=== PATIENT | female | born 1950 | race Caucasian/White ===

== ENCOUNTER 2017-08-22 16:21 | Emergency (ER) | payer OTHER ==
[2017-08-22 16:34] VITALS: BP 133/88; PULSE 89; TEMP 97.6; BMI 24.7
--- NOTE | 2017-08-22 18:10 | PDOC ---
History of Present Illness <Pete Frederick - Last Filed: 08/22/17 18:56> - History of Present Illness Initial Comments: 08/22/17 18:03 "The patient is a 67 year old female, with no significant past medical history, who presents to the emergency department with, right knee pain s/p fall this morning. The patient states she slipped in the snow this morning and her right leg slid outwards from under her. The patient denies head strike/injury or loss of consciousness. The patient denies any preceeding chest pain, palpitations, shortness of breath, blurred vision or nausea prior to falling. The patient states she was able to get up on her own after the fall and bear weight on her R leg without any pain. However, after a few hours, she began to notice pain in her R knee, especially with ambulation. The patient reports the right knee pain is alleviated at rest when sitting down and made worse with movement/ bearing weight. The patient states she has not taken any pain medication for the right knee pain. Allergies: NKA " <Rafael Pinon - Last Filed: 08/25/17 09:21> - General Chief Complaint: Injury Stated Complaint: RIGTH FOOT AN DKNEE PAIN S/P FELL IN THE ICE TODAY Time Seen by Provider: 08/22/17 16:31 Past History <Pete Frederick - Last Filed: 08/22/17 18:56> - Past Medical History COPD: No Psychiatric Problems: Yes (depression) - Immunization History Immunization Up to Date: Yes - Suicide/Smoking/Psychosocial Hx Smoking History: Never smoked Hx Alcohol Use: No Drug/Substance Use Hx: No Substance Use Type: None <Rafael Pinon - Last Filed: 08/25/17 09:21> - Past Medical History Allergies/Adverse Reactions: Allergies Allergy/AdvReac Type Severity Reaction Status Date / Time No Known Allergies Allergy Verified 08/22/17 16:27 Home Medications: Ambulatory Orders Nortriptyline HCl [Pamelor] 75 mg PO HS 08/22/17 Review of Systems - Review of Systems Comments:: 08/22/17 18:04 " GENERAL/CONSTITUTIONAL: No fever or chills. No weakness. HEAD, EYES, EARS, NOSE AND THROAT: No change in vision. No ear pain or discharge. No sore throat. CARDIOVASCULAR: No chest pain or shortness of breath. RESPIRATORY: No cough, wheezing, or hemoptysis. GASTROINTESTINAL: No nausea, vomiting, diarrhea or constipation. GENITOURINARY: No dysuria, frequency, or change in urination. MUSCULOSKELETAL: +Right knee pain. No neck or back pain. SKIN: No rash NEUROLOGIC: No headache, vertigo, loss of consciousness, or change in strength/ sensation. ENDOCRINE: No increased thirst. No abnormal weight change. HEMATOLOGIC/LYMPHATIC: No anemia, easy bleeding, or history of blood clots. ALLERGIC/IMMUNOLOGIC: No hives or skin allergy. " <KathrinRafael - Last Filed: 08/25/17 09:21> *Physical Exam - Vital Signs Last Vital Signs Temp Pulse Resp BP Pulse Ox 97.6 F 89 16 133/88 100 08/22/17 16:22 08/22/17 16:22 08/22/17 16:22 08/22/17 16:22 08/22/17 16:22 <Pete Frederick - Last Filed: 08/22/17 18:56> - Vital Signs Last Vital Signs Temp Pulse Resp BP Pulse Ox 97.6 F 89 16 133/88 100 08/22/17 16:22 08/22/17 16:22 08/22/17 16:22 08/22/17 16:22 08/22/17 16:22 - Physical Exam Comments: 08/22/17 18:04 "GENERAL: Awake, alert, and fully oriented, in no acute distress HEAD: No signs of trauma EYES: PERRLA, EOMI, sclera anicteric, conjunctiva clear ENT: Auricles normal inspection, hearing grossly normal, nares patent, oropharynx clear without exudates. Moist mucosa NECK: Nontender, no stepoffs, Normal ROM, supple, no lymphadenopathy, JVD, or masses LUNGS: Breath sounds equal, clear to auscultation bilaterally. No wheezes, and no crackles HEART: Regular rate and rhythm, normal S1 and S2, no murmurs, rubs or gallops ABDOMEN: Soft, nontender, normoactive bowel sounds. No guarding, no rebound. No masses PELVIS: stable EXTREMITIES: R knee with full active ROM, mild TTP at medial joint line, + pain with valgus stress, no effusion. No clubbing or cyanosis. No cords, erythema, or tenderness, R ankle with no bony tenderness or deformity, pulses intact distally, sensation intact to light touch NEUROLOGICAL: Cranial nerves II through XII intact. 5/5 strength and sensation in all extremities, Normal speech, normal gait, normal cerebellar function SKIN: Warm, Dry, normal turgor, no rashes or lesions noted. <Rafael Pinon - Last Filed: 08/25/17 09:21> ED Treatment Course - RADIOLOGY Radiograph Interpretation: 08/22/17 18:56 EXAM#: TYPE/EXAM: RESULT: [id number] RAD/ANKLE-RIGHT RAD/KNEE 3 POS-RIGHT INDICATION: Status post fall. TECHNIQUE: 1. AP, lateral and sunrise views of the right knee. 2. AP, lateral and oblique views of the right ankle. COMPARISON: None available. FINDINGS: Right knee - No evidence of acute fracture or dislocation. Alignment is anatomic. The joint spaces are maintained with no significant arthritic changes. There is a small to moderate size suprapatellar effusion. There is enthesopathy at the insertion of the quadriceps tendon. There is osseous demineralization. Right ankle - Status post ORIF of the medial and lateral malleolus. Hardware is intact. There is no definite acute fracture in the right ankle. Alignment is anatomic. The talar dome is grossly intact. There is punctate calcification along the distal Achilles tendon. There is osseous demineralization. IMPRESSION: 1. Right knee - No evidence of acute fracture or dislocation. Small to moderate -sized suprapatellar joint effusion is nonspecific. 2. Right ankle - Status post ORIF of the medial and lateral malleolus. No evidence of acute fracture or dislocation. Reported By: Gemini Hale DO <Pete Frederick - Last Filed: 08/22/17 18:56> - RADIOLOGY Radiology Studies Ordered: Category Date Time Status ANKLE-RIGHT [RAD] Stat Radiology 08/22/17 17:16 Taken KNEE 3 POS-RIGHT [RAD] Stat Radiology 08/22/17 17:16 Taken <Rafael Pinon - Last Filed: 08/25/17 09:21> Medical Decision Making - Medical Decision Making 08/22/17 18:12 67 F with R knee pain s/p fall today. Pt ambulatory with minimal pain. Exam notable for medial jointline tenderness + pain with valgus stress. Possible MCL injury. Pt with no signs of acute fx. No signs of head trauma, no c-spine or back tenderness, no hip or pelvis pain. Pt has had prior surgery on R ankle. No pain in her ankle but will obtain XR given presence of hardware. - XR R knee, R ankle 08/22/17 19:06 XR negative for acute fx. Pt placed in knee immobilizer. Will f/u with ortho for further evaluation of pain, possible MRI to r/o ligamentous injury. Pt is well appearing, with normal vitals. Clinically stable for DC at this time. I discussed the physical exam findings, ancillary test results and final diagnoses with the patient. I answered all of the patient's questions. The patient was satisfied with the care received and felt comfortable with the discharge plan and treatment plan. The patient agrees to follow up with the primary care physician within 24-72 hours. <Rafael Pinon - Last Filed: 08/25/17 09:21> *DC/Admit/Observation/Transfer - Attestations Scribe Attestion: 08/22/17 18:22 Documentation prepared by Pete Frederick, acting as medical apparatus model maker for Rafael Pinon MD. <Pete Frederick - Last Filed: 08/22/17 18:56> - Attestations Physician Attestion: 08/22/17 18:18 I, Dr. Rafael Pinon MD, attest that this document has been prepared under my direction and personally reviewed by me in its entirety. I further attest, that it accurately reflects all work, treatment, procedures and medical decision -making performed by me. <Rafael Pinon - Last Filed: 08/25/17 09:21> Diagnosis at time of Disposition: Knee pain - Discharge Dispostion Disposition: HOME Condition at time of disposition: Stable - Referrals Referrals: Rafeal Bradford MD [Staff Physician] - - Patient Instructions Printed Discharge Instructions: DI for Knee Pain Additional Instructions: Keep your knee in the knee immobilizer until you are able to see an orthopedic surgeon. You may have a torn ligament. You will likely need a MRI to fully evaluate this. If you experience worsening pain, swelling, or any other concerning symptoms, return to the ER immediately.
== END 2017-08-22 19:20 | disposition home or self-care (01) ==
LOC: FER 16:21
PROC: 2W3QX1Z Immobilization of Right Lower Leg using Splint (ICD-10-PCS; principal; 2017-08-22)
DX: M25.561 Pain in right knee (principal); W00.0XXA Fall on same level due to ice and snow, initial encounter; Y93.89 Activity, other specified; Y92.9 Unspecified place or not applicable; F32.9 Major depressive disorder, single episode, unspecified
CPT/HCPCS: 73562-TC-RT-FY; 73610-TC-RT-FY; 99282-25

== ENCOUNTER 2018-07-21 19:13 | Emergency (ER) | payer OTHER ==
--- NOTE | 2018-07-21 19:28 | PDOC ---
History of Present Illness - General History Source: Patient Exam Limitations: No Limitations - History of Present Illness Initial Comments: 07/21/18 19:53 The patient is a 68-year-old female with no reported past medical history presents to the emergency department with cold symptoms. The patient reports she returned from a trip to [facility] on July 18, where the symptoms began. The patient states she was visiting [facility] near [facility], where it was cold. The patient states she packed summer clothes and wasnt prepared for the cold. The patient reports the symptoms present as heaviness with a lack of energy, headache, and a cough. Denies taking any abx or OTC medication. The patient indicates the symptoms slightly improved a little before worsening. The patient reports since returning, shes been having symptoms of weakness, lack of appetite and cough. Denies rashes or diarrhea. Allergies: NKDA <Ema Kohler - Last Filed: 07/21/18 20:01> <Leonardo Kirk - Last Filed: 07/22/18 05:37> - General Chief Complaint: Respiratory Stated Complaint: URI Time Seen by Provider: 07/21/18 19:17 Past History <Ema Kohler - Last Filed: 07/21/18 20:01> - Past Medical History COPD: No Psychiatric Problems: Yes (depression) - Immunization History Immunization Up to Date: Yes - Suicide/Smoking/Psychosocial Hx Smoking History: Never smoked Hx Alcohol Use: No Drug/Substance Use Hx: No Substance Use Type: None <Leonardo Kirk - Last Filed: 07/22/18 05:37> - Past Medical History Allergies/Adverse Reactions: Allergies Allergy/AdvReac Type Severity Reaction Status Date / Time No Known Allergies Allergy Verified 08/22/17 16:27 Home Medications: Ambulatory Orders Doxycycline Hyclate [Vibratab -] 100 mg PO BID #20 tablet 07/21/18 Review of Systems - Review of Systems Able to Perform ROS?: Yes Comments:: 07/21/18 19:53 GENERAL/CONSTITUTIONAL: +mild fever and weakness. No chills. HEAD, EYES, EARS, NOSE AND THROAT: +rhinorrhea. No change in vision. No ear pain or discharge. No sore throat. CARDIOVASCULAR: No chest pain or shortness of breath. RESPIRATORY: +cough. No wheezing, or hemoptysis. GASTROINTESTINAL: No nausea, vomiting, diarrhea or constipation. GENITOURINARY: No dysuria, frequency, or change in urination. MUSCULOSKELETAL: No joint or muscle swelling or pain. No neck or back pain. SKIN: No rash NEUROLOGIC: +headache. No vertigo, loss of consciousness, or change in strength/ sensation. ENDOCRINE: No increased thirst. No abnormal weight change. HEMATOLOGIC/LYMPHATIC: No anemia, easy bleeding, or history of blood clots. ALLERGIC/IMMUNOLOGIC: No hives or skin allergy. <Ema Kohler - Last Filed: 07/21/18 20:01> *Physical Exam - Vital Signs Last Vital Signs Temp Pulse Resp BP Pulse Ox 98.7 F 103 H 16 140/89 92 L 07/21/18 19:26 07/21/18 19:26 07/21/18 19:26 07/21/18 19:26 07/21/18 19:26 - Physical Exam Comments: 07/21/18 19:53 GENERAL: Awake, alert, and fully oriented, in no acute distress HEAD: No signs of trauma EYES: PERRLA, EOMI, sclera anicteric, conjunctiva clear ENT: Auricles normal inspection, hearing grossly normal, nares patent, oropharynx clear without exudates. Moist mucosa NECK: Normal ROM, supple, no lymphadenopathy, JVD, or masses LUNGS: Breath sounds equal, clear to auscultation bilaterally. No wheezes, and no crackles HEART: Regular rate and rhythm, normal S1 and S2, no murmurs, rubs or gallops ABDOMEN: Soft, nontender. No guarding, no rebound. No masses EXTREMITIES: Normal range of motion, no edema. No clubbing or cyanosis. No cords, erythema, or tenderness NEUROLOGICAL: Cranial nerves II through XII grossly intact. Normal speech, normal gait SKIN: Warm, Dry, normal turgor, no rashes or lesions noted. <Ema Kohler - Last Filed: 07/21/18 20:01> Moderate Sedation - Procedure Monitoring Vital Signs: Procedure Monitoring Vital Signs Temperature 98.7 F 07/21/18 19:26 Pulse Rate 103 H 07/21/18 19:26 Respiratory Rate 16 07/21/18 19:26 Blood Pressure 140/89 07/21/18 19:26 O2 Sat by Pulse Oximetry (%) 92 L 07/21/18 19:26 <Ema Kohler - Last Filed: 07/21/18 20:01> Heart Score/ECG Review - ECG Impressions Comment:: 07/21/18 20:01 EKG demonstrates Sinus rhythm of 93, Normal axis, normal interval, no ischemic findings. <Ema Kohler - Last Filed: 07/21/18 20:01> ED Treatment Course - LABORATORY CBC & Chemistry Diagram: 07/21/18 19:55 07/21/18 19:55 <Ema Kohler - Last Filed: 07/21/18 20:01> - LABORATORY CBC & Chemistry Diagram: 07/21/18 19:55 07/21/18 19:55 <Leonardo Kirk - Last Filed: 07/22/18 05:37> Medical Decision Making - Medical Decision Making 07/22/18 05:36 pneumonia/ pneumonitis abx symptomatic treatment <Leonardo Kirk - Last Filed: 07/22/18 05:37> *DC/Admit/Observation/Transfer - Attestations Scribe Attestion: 07/21/18 19:54 Documentation prepared by Ema Kohler, acting as medical logistics specialist for Leonardo Kirk MD. <Ema Kohler - Last Filed: 07/21/18 20:01> <Leonardo Kirk - Last Filed: 07/22/18 05:37> Diagnosis at time of Disposition: Pneumonia Qualifiers: Pneumonia type: due to unspecified organism Laterality: unspecified laterality Lung location: unspecified part of lung Qualified Code(s): J18.9 - Pneumonia, unspecified organism - Discharge Dispostion Disposition: HOME Condition at time of disposition: Stable - Prescriptions Prescriptions: Doxycycline Hyclate [Vibratab -] 100 mg PO BID #20 tablet - Patient Instructions Printed Discharge Instructions: DI for Pneumonia -- Adult
[2018-07-21 19:32] VITALS: BP 140/89; TEMP 98.7; BMI 22.1
[2018-07-21 20:10] LABS: BASO % 1.1 % (0-2.0); EOS % 0.1 % (0-4.5); HEMATOCRIT 35.8 % (32.4-45.2); HEMOGLOBIN 11.7 GM/dl (10.7-15.3); LYMPH % 9.4 % (8-40); MCH 25.2 pg (25.7-33.7); MCHC 32.7 g/dl (32.0-36.0); MEAN CELL VOLUME 77.2 fl (80-96); MEAN PLT VOLUME 8.8 fl (7.5-11.1); MONO % 8.6 % (3.8-10.2); NEUT % 80.8 % (42.8-82.8); PLATELET COUNT 244 K/MM3 (134-434); RBC 4.64 M/mm3 (3.60-5.2); RDW 12.1 % (11.6-15.6); WHITE BLOOD COUNT 9.8 K/mm3 (4.0-10.8)
[2018-07-21 20:24] LABS: ALBUMIN 2.8 g/dl (3.4-5.0); ALK PHOS 75 U/L (45-117); ANION GAP 7 MMOL/L (8-16); BILIRUBIN,TOTAL 0.8 mg/dl (0.2-1); BLOOD UREA NITROGEN 8 mg/dl (7-18); CALCIUM 7.9 mg/dl (8.5-10); CHLORIDE 99 mmol/L (98-107); CO2 26 mmol/L (21-32); CREATININE 0.6 mg/dl (0.55-1.3); GLUCOSE,RANDOM 114 mg/dl (74-106); SGOT/AST 16 U/L (15-37); SGPT/ALT 14 U/L (13-61); SODIUM 132 mmol/L (136-145); TOT PROT 6.2 g/dl (6.4-8.2)
[2018-07-21 20:59] LABS: VENOUS PC02 43.3 mmHg (38-52); VENOUS PH 7.42 (7.32-7.42); VENOUS PO2 31.6 mmHg (28-48)
[2018-07-21 21:17] LABS: N-TERMINAL BNP 172.4 pg/ml (5-125)
[2018-07-21 21:40] VITALS: PULSE 102
[2018-07-21] MEDS ORDERED: DOXYCYCLINE HYCLATE 100 MG CAPSULE PO ONE ×2 (22:51→22:53)
--- NOTE | 2018-07-24 11:07 | EKG ---
Test Reason : Blood Pressure : / mmHG Vent. Rate : 093 BPM Atrial Rate : 093 BPM P-R Int : 128 ms QRS Dur : 070 ms QT Int : 340 ms P-R-T Axes : 076 052 062 degrees QTc Int : 422 ms NORMAL SINUS RHYTHM POSSIBLE LEFT ATRIAL ENLARGEMENT BORDERLINE ECG NO PREVIOUS ECGS AVAILABLE Confirmed by ZOIE PABON, RACIEL ([id number]) on 07/24/2018 11:07:13 AM Referred By: DR OSUNA Confirmed By:RACIEL LINO MD
== END 2018-07-21 23:04 | disposition home or self-care (01) ==
LOC: FER 19:13
DX: J18.9 Pneumonia, unspecified organism (principal); F32.9 Major depressive disorder, single episode, unspecified
CPT/HCPCS: 36415; 71046-TC-FY; 71260-TC; 80053; 82803; 83605; 83880; 84484; 85025; 85379; 87040; 93005; 99283-25

== ENCOUNTER 2019-12-26 22:06 | Emergency (ER) | payer OTHER ==
--- NOTE | 2019-12-26 22:09 | PDOC ---
History of Present Illness - General Chief Complaint: Constipation Stated Complaint: "I am constipated" Time Seen by Provider: 12/26/19 22:08 - History of Present Illness Initial Comments: 12/26/19 22:40 This 69-year-old woman with a history of depression but no other medical problems presents with 2-day history of constipation and several hour history of abdominal distention/discomfort/ mild nausea but no bowel movement after taking laxatives. Patient states that she has only one previous history of constipation last year that resolved over a few days. Otherwise, she usually has 2-3 bowel movements each day. She last remembers having 1 normal bowel movement 2 days ago and none since then. Today, she bought [id number] colonoscopy prep kit that contained dulcolax tabs(which she took at about noon) and citrate of magnesia. After she drank the bottle of citrate of magnesium at 7PM, she began to have cramping abdominal pain and mild nausea. She has not vomited. No chest pain, shortness of breath, cough No new medications (nortriptyline was started a few months ago); no dietary changes. No recent fever/chills. No history of small bowel obstruction; no history of abdominal surgery. Last colonoscopy was last year (reportedly normal) Medication: Nortriptyline No known allergies Non-smoker; no daily alcohol or other recreational drug use Past History - Medical History Allergies/Adverse Reactions: Allergies Allergy/AdvReac Type Severity Reaction Status Date / Time No Known Allergies Allergy Verified 08/22/17 16:27 Home Medications: Ambulatory Orders Nortriptyline HCl [Pamelor -] 75 mg PO DAILY 12/26/19 COPD: No Psychiatric Problems: Yes (depression) - Immunization History Immunization Up to Date: Yes - Psycho-Social/Smoking History Smoking History: Never smoked Review of Systems - Review of Systems Able to Perform ROS?: Yes Comments:: 12 point review of systems is negative except for what is noted in the history of present illness *Physical Exam - Physical Exam GENERAL: Adult female, alert and oriented x3, in mild distress secondary to abdominal discomfort HEAD: Normal with no signs of trauma. EYES: PERRLA, EOMI, sclera anicteric, conjunctiva clear. ENT: Ears normal, nares patent, oropharynx clear without exudates. Dry mucous membranes. NECK: Normal range of motion, supple without lymphadenopathy, JVD, or masses. LUNGS: Breath sounds equal, clear to auscultation bilaterally. No wheezes, and no crackles. HEART:Regular rate and rhythm, normal S1 and S2 without murmur, rub or gallop. ABDOMEN:.normal bowel sounds: firm, moderately distended, mild generalized tenderness without guarding or rebound; no masses or organomegaly RECTAL: Normal anal tone, empty ampulla without stool or palpable masses EXTREMITIES: Normal range of motion, no edema. No clubbing or cyanosis. No e rythema, or tenderness. NEUROLOGICAL: Cranial nerves II through XII grossly intact. Normal speech. Normal gait no focal neurological deficits. ED Treatment Course - LABORATORY CBC & Chemistry Diagram: 12/26/19 22:41 12/26/19 22:41 ED Progress Note - Progress Note Progress Note: This 69-year-old woman with a history of depression but no significant other past medical history presents with a 2-day history of constipation. Patient states that she rarely becomes constipated (had an episode last year) but has been treated with nortriptyline for a few months which is known to cause constipation. She purchased an [id number] colonoscopy prep kit containing Dulcolax and citrate of magnesia which she consumed today: She noted abdominal distention and discomfort after drinking the magnesium citrate without having a bowel movement. She also developed mild nausea without vomiting. Exam as noted above with no stool noted in the distal rectum on rectal exam. CBC/chemistry profile obtained flat and upright x-ray image of the abdomen was obtained (limited views through portable technique because of limitations in the radiology department at this time). Preliminary reading by me: Stool seen in the distal colon. Some gas- filled loops of small bowel seen without significant dilatation or air-fluid levels Laboratory evaluation notable for mild increase in white blood cell count (12,900); there is also mild hyponatremia(132). AST was also minimally elevated at 70 with normal ALT. No other significant abnormality seen in the lab work. Patient had spontaneous evacuation of her bowels (loose brown stool according to the patient) with relief in her abdominal discomfort. Reexamination showed no tenderness and significant decrease in abdominal distention. The patient expressed overwhelming desire to be discharged. 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 She should return to the emergency room immediately if she has any recurrence of her pain, abdominal distention or develops nausea/vomiting/fever Discharge - Discharge Information Problems reviewed: Yes Clinical Impression/Diagnosis: History of constipation Condition: Stable Disposition: HOME - Follow up/Referral - Patient Discharge Instructions Patient Printed Discharge Instructions: Constipation Additional Instructions: continue to drink plenty of water return to ER if you develop persistent abdominal pain, vomiting or fever followup with your doctor within the next 5 days - Post Discharge Activity
[2019-12-26 22:17] VITALS: BP 139/84; PULSE 100; TEMP 97.9; BMI 22.1
[2019-12-26] MEDS ORDERED: SODIUM CHLORIDE 500 ML IV STA (22:39)
[2019-12-27 00:21] LABS: BASO % 0.2 % (0-2.0); EOS % 0.2 % (0-4.5); HEMATOCRIT 38.8 % (32.4-45.2); HEMOGLOBIN 12.7 GM/dL (10.7-15.3); LYMPH % 9.4 % (8-40); MCH 25.5 pg (25.7-33.7); MCHC 32.6 g/dl (32.0-36.0); MEAN CELL VOLUME 78.2 fl (80-96); MEAN PLT VOLUME 9.9 fl (7.5-11.1); MONO % 7.2 % (3.8-10.2); PLATELET COUNT 154 K/MM3 (134-434); RBC 4.95 M/mm3 (3.60-5.2); RDW 13.5 % (11.6-15.6); WHITE BLOOD COUNT 12.9 K/mm3 (4.0-10.0)
[2019-12-27 00:26] LABS: ALBUMIN 3.5 g/dl (3.4-5.0); BILIRUBIN,TOTAL 0.6 mg/dL (0.2-1); BLOOD UREA NITROGEN 10.2 mg/dL (7-18); CALCIUM 8.8 mg/dL (8.5-10.1); CREATININE 0.8 mg/dL (0.55-1.3); POTASSIUM 3.9 mmol/L (3.5-5.1); TOT PROT 6.8 g/dl (6.4-8.2)
== END 2019-12-27 00:35 | disposition home or self-care (01) ==
LOC: FER 22:06
PROC: 3E0337Z Introduction of Electrolytic and Water Balance Substance into Peripheral Vein, Percutaneous Approach (ICD-10-PCS; principal; 2019-12-26)
DX: K59.00 Constipation, unspecified (principal)
CPT/HCPCS: 36415; 74019-TC-FY; 80053; 85025; 99284-25

== ENCOUNTER 2023-11-29 10:05 | Emergency (ER) | payer OTHER, MEDICARE ==
[2023-11-29 10:29] VITALS: BP 149/80; PULSE 74; RESP 20; TEMP 98.3; BMI 24.3
[2023-11-29] MEDS ORDERED: ALBUTEROL SO4 2.5/IPRATROPIUM 0.5 INH SOL 3 ML VIAL.NEB. NEB ONE (11:04)
[2023-11-29] MEDS: ALBUTEROL SO4 2.5/IPRATROPIUM 0.5 INH SOL 3 ML VIAL.NEB. NEB ONE ×2 (11:20→11:28)
[2023-11-29] MEDS: predniSONE 20 MG TABLET (UD) PO ONE (11:20)
[2023-11-29] MEDS ORDERED: predniSONE 20 MG TABLET (UD) ONE (11:21)
== END 2023-11-29 12:11 | disposition home or self-care (01) ==
LOC: FER 10:05
PROC: 3E0F7GC Introduction of Other Therapeutic Substance into Respiratory Tract, Via Natural or Artificial Opening (ICD-10-PCS; principal; 2023-11-29)
PROC: 3E0F7GC Introduction of Other Therapeutic Substance into Respiratory Tract, Via Natural or Artificial Opening (ICD-10-PCS; 2023-11-29)
DX: J18.9 Pneumonia, unspecified organism (principal); R05.9 Cough, unspecified; R07.89 Other chest pain; R68.83 Chills (without fever); Z20.822 Contact with and (suspected) exposure to COVID-19
CPT/HCPCS: 0241U-QW; 71046-TC-FY; 99284-25

== ENCOUNTER 2024-10-26 09:21 | Emergency (ER) | payer OTHER, MEDICARE ==
[2024-10-26 09:32] VITALS: BP 120/78; BMI 23.9
[2024-10-26] MEDS ORDERED: ACETAMINOPHEN INJECTION 100 ML ONE (10:09)
[2024-10-26] MEDS: SODIUM CHLORIDE 0.9% 500 ML INFUS.BAG IV ONE (10:20)
[2024-10-26] MEDS: ACETAMINOPHEN 1000 MG/100 ML BAG IVPB ONE (10:25)
[2024-10-26 11:00] LABS: ABSOLUTE IMMATURE GRANULOCYTES 0.02 x10^3/uL (0.0-0.031); BASOPHILS # 0.03 x10^3/uL (0.01-0.08); EOSINOPHIL % 0.1 % (0.7-5.8); EOSINOPHILS # 0.01 x10^3/uL (0.04-0.36); HEMATOCRIT 29.2 % (34.1-44.9); HEMOGLOBIN 9.4 g/dL (11.2-15.7); MCHC 32.2 g/dl (32.2-35.5); MEAN CELL VOLUME 77.5 fl (79.4-94.8); MEAN PLT VOLUME 11.6 fl (9.4-12.3); MONOCYTE # 0.44 x10^3/uL (0.24-0.86); MONOCYTE % 6.1 % (4.7-12.5); PLATELET COUNT 99 x10^3/uL (182-369); RDW 13.2 % (12.4-16.6)
[2024-10-26 11:22] LABS: ALBUMIN 3.4 g/dl (3.4-5.0); BILIRUBIN,TOTAL 0.3 mg/dl (0.2-1); CALCIUM 8.2 mg/dl (8.5-10.1); CREATININE 0.7 mg/dl (0.6-1.3); MAGNESIUM 1.8 mg/dL (1.8-2.4); POTASSIUM 4.4 mmol/L (3.5-5.1)
[2024-10-26 12:44] LABS: EPITHELIAL CELLS 0-5 /hpf
[2024-10-26] MEDS ORDERED: AZITHROMYCIN 500 MG TABLET ONE (13:06)
[2024-10-26] MEDS: AZITHROMYCIN 250 MG TABLET PO ONE (13:09)
[2024-10-26 13:12] VITALS: PULSE 85; RESP 18; TEMP 98.1
[2024-10-26 17:07] LABS: HCV DIAGNOSTIC IN-HOUSE W/RFLX NON-REACTIVE (NONREACTIVE)
[2024-10-26 17:09] LABS: HIV INTERPRETATION NEGATIVE (NEGATIVE)
== END 2024-10-26 13:19 | disposition home or self-care (01) ==
LOC: FER 09:21
PROC: 3E033NZ Introduction of Analgesics, Hypnotics, Sedatives into Peripheral Vein, Percutaneous Approach (ICD-10-PCS; principal; 2024-10-26)
DX: J18.9 Pneumonia, unspecified organism (principal); R06.02 Shortness of breath; R00.0 Tachycardia, unspecified; M54.50 Low back pain, unspecified; R53.81 Other malaise; M79.10 Myalgia, unspecified site; R05.9 Cough, unspecified; R07.2 Precordial pain; R50.9 Fever, unspecified
CPT/HCPCS: 0241U-QW; 36415; 71046-TC-FY; 80053; 81003; 81015; 83735; 84484; 85025; 86803; 87086; 87389; 93005; 99285-25; J0131